=== PATIENT | female | born 1990 | race Caucasian/White ===

== ENCOUNTER 2020-01-30 15:10 | Emergency (ER) | payer SELFPAY ==
[~2020-01-30] VITALS: Ht 167.6 cm; Wt 62.8 kg
[~2020-01-30 15:10] MED LIST: AMBIEN10 MG; AMOXICILLIN 50500 MG PO; BUSPAR10 MG PO; LEXAPRO20 MG
[2020-01-30 15:49] LABS: HEMATOCRIT 40.7 % (37.0-47.0); HEMOGLOBIN 13.3 g/dL (12.5-16.0); MEAN CELL VOLUME 89 fl (78-100); MEAN CORPUSCULAR HEMOGLOBIN 29 pg (27-31); MEAN CORPUSCULAR HGB CONC 33 g/dL (33-37); MEAN PLATELET VOLUME 9.2 fl (7.4-10.4); PLATELET COUNT 346 K/mm3 (130-400); RED BLOOD COUNT 4.59 M/mm3 (4.10-5.30); RED CELL DISTRIBUTION WIDTH 13.5 % (11.5-14.5); WHITE BLOOD COUNT 15.2 K/mm3 (4.8-10.8)
[2020-01-30 16:02] LABS: LYMPHOCYTE 12 % (20-51); MONOCYTE 6 % (3-10); NEUTROPHILS 80 % (42-75)
[2020-01-30 16:03] LABS: ALBUMIN 3.9 g/dL (3.5-5.0); POTASSIUM 3.4 mmol/L (3.5-5.1)
[2020-01-30 16:05] LABS: CALCIUM 8.6 mg/dL (8.3-10.5)
[2020-01-30 16:06] LABS: TOTAL PROTEIN 7.1 g/dL (6.4-8.3)
[2020-01-30 16:08] LABS: TOTAL BILIRUBIN 0.5 mg/dL (0.2-1.2)
[2020-01-30 16:54] LABS: URINE APPEARANCE CLOUDY; URINE BILIRUBIN NEGATIVE (NEGATIVE); URINE BLOOD NEGATIVE (NEGATIVE); URINE COLOR YELLOW; URINE GLUCOSE NEGATIVE (NEGATIVE); URINE KETONE NEGATIVE (NEGATIVE); URINE LEUKOCYTE ESTERASE 1+ (NEGATIVE); URINE NITRATE NEGATIVE (NEGATIVE); URINE PROTEIN(semi-quant) TRACE mg/dL (NEGATIVE); URINE UROBILINOGEN NORMAL (NORMAL)
[2020-01-30 16:55] LABS: URINE MUCUS PRESENT (NOT PRESENT)
[2020-01-30 18:05] LABS: CLUE CELLS PRESENT (Not Observd)
[2020-01-30] MEDS ORDERED: METRONIDAZOLE0.752 VG ×2 (18:22)
[2020-01-31 00:58] VITALS: BP 105/66
== END 2020-01-31 00:58 | disposition other institution (70) ==
LOC: ED 15:10 → MED/SURG 21:56 → ED 21:56 → MED/SURG 01-31 00:32 → ED 01-31 00:32 → MED/SURG 01-31 00:58
PROVIDERS: Nurse Practitioner Family
DX: N73.9 Female pelvic inflammatory disease, unspecified (principal); N76.0 Acute vaginitis; A59.9 Trichomoniasis, unspecified; A41.9 Sepsis, unspecified organism; K63.89 Other specified diseases of intestine; F17.210 Nicotine dependence, cigarettes, uncomplicated
CPT/HCPCS: C9113; J0696; J1885; J1956; J2270; J2405; J7030; Q0111; Q9967